=== PATIENT | male | born 1950 | race Caucasian/White ===

== ENCOUNTER 2018-02-06 13:30 | Emergency (ER) | payer MEDICARE, BC, MEDICAID ==
--- NOTE | 2018-02-06 14:04 | ED Physician Chart ---
ED Chief Complaint/HPI - Patient Information Allergies:: Allergies Allergy/AdvReac Type Severity Reaction Status Date / Time divalproex sodium Allergy Verified 02/08/17 19:08 [From Depakote] olanzapine [From Zyprexa] Allergy Verified 02/08/17 19:08 Vitals:: Vital Signs - 8 hr 02/06/18 02/06/18 16:40 19:20 Temp 98.0 F HR 64 61 RR 18 17 BP 100/65 123/75 O2 Sat % 95 98 <Toshia Caballero - Last Filed: 02/06/18 23:04> - Patient Information Date Seen:: 02/06/18 Time Seen:: 14:03 Chief Complaint:: ABDOMINAL PAIN INTERMITTENT X 2 WKS History of Present Illness:: THIS 68-YEAR-OLD MALE RESENTS TO THE EMERGENCY ROOM WITH A TWO-WEEK HISTORY OF PAIN IN THE LOWER ABDOMEN THAT HAS A BAND LIKE DISTRIBUTION RUNNING FROM THE RIGHT LOWER QUADRANT TO THE LEFT.. THE PAIN DOES NOT RADIATE INTO THE BACK OR INTO THE CHEST. HE RATES THE SEVERITY OF THE PAIN A 7/10. HE IS MORE COMFORTABLE IN THE STANDING POSITION BATTLING DOWN.THE PAIN IS NOT ACCOMPANIED BY ANY FEVER, CHILLS OR DIAPHORESIS.YES EXPERIENCE NO NAUSEA, VOMITING OR DIARRHEA.THE PATIENT NOTES THAT HE HAS BEENCONSTIPATED OVERTHE PAST COUPLE OF WEEKS. T Allergies:: Allergies Allergy/AdvReac Type Severity Reaction Status Date / Time divalproex sodium Allergy Verified 02/08/17 19:08 [From Depakote] olanzapine [From Zyprexa] Allergy Verified 02/08/17 19:08 Historian:: Patient <Jordan Norman - Last Filed: 02/08/18 18:24> ED Review of Systems - Review of Systems General/Constitutional: No fever, No chills, No weakness, No diaphoresis, No loss of appetite Skin: No skin lesions, No bruising Head: No headache, No light-headedness Eyes: No loss of vision, No diplopia ENT: No earache, Nasal drainage, No sore throat, No tinnitus Cardio Vascular: No chest pain, No orthopnea, No edema Pulmonary: No SOB, No cough, No sputum, No wheezing GI: No nausea, No vomiting, No diarrhea, Pain, No melena, No hematochezia, Constipation, No hematemesis G/U: No dysuria, No frequency, No hematuria, No nacturia <Jordan Norman - Last Filed: 02/08/18 18:24> ED Past Medical History - Past Medical History Past Medical History: HTN, Dyslipidemia, Thyroid disorder Social History: Non Smoker, No Alcohol, No Drug Use, Surgical History: Cholecystectomy Psychiatricy History: Bipolar, Dementia Other PMH History: BENIGN PROSTHETIC HYPERTROPHY <Jordan Norman - Last Filed: 02/08/18 18:24> Family Medical History - Family Member Mother History Unknown: Yes Ethnicity: Unknown Living Status: Unknown Hx Family Cancer: Yes Hx Family Coronary Artery Disease: (Unknown) Hx Family Congestive Heart Failure: (Unknown) Hx Family Hypertension: Yes Hx Family Stroke: (Unknown) Hx Family Diabetes: Yes Hx Family Seizures: (Unknown) Hx Family Dementia: (Unknown) Hx Family AIDS: (Unknown) Hx Family HIV: No Hx Family COPD: (Unknown) Hx Family Hepatitis: (Unknown) Hx Family Psychiatric Problems: (Unknown) Hx Family Tuberculosis: (Unknown) <Jordan Norman - Last Filed: 02/08/18 18:24> ED Labs/Radiology/EKG Results - Lab Results Results: Laboratory Tests 02/06/18 02/06/18 02/06/18 14:15 14:15 14:15 WBC 8.8 RBC 4.80 Hgb 15.6 Hct 45.0 MCV 93.6 MCH 32.6 H MCHC Differential 34.8 RDW 13.4 Plt Count 162 MPV 7.9 Neutrophils % 60.0 Lymphocytes % 23.9 Monocytes % 9.3 Eosinophils % 6.8 H Basophils % 0.0 Sodium 136 Potassium 4.1 Chloride 106 Carbon Dioxide 24.9 Anion Gap 9.2 BUN 17 Creatinine 0.8 Est GFR ( Amer) > 60.0 Est GFR (Non-Af Amer) > 60.0 BUN/Creatinine Ratio 21.3 Glucose 122 H Calcium 8.6 Total Bilirubin 0.4 AST 19 ALT 16 Alkaline Phosphatase 78 Troponin I < 0.01 L Total Protein 6.2 Albumin 3.7 L Globulin 2.5 Albumin/Globulin Ratio 1.5 Amylase 42 Lipase 37 Urine Source Urine Color Urine Clarity Urine pH Ur Specific [place] Urine Protein Urine Glucose (UA) Urine Ketones Urine Blood Urine Nitrate Urine Bilirubin Urine Urobilinogen Ur Leukocyte Esterase Urine RBC Urine WBC Ur Epithelial Cells Urine Bacteria 02/06/18 14:50 WBC RBC Hgb Hct MCV MCH MCHC Differential RDW Plt Count MPV Neutrophils % Lymphocytes % Monocytes % Eosinophils % Basophils % Sodium Potassium Chloride Carbon Dioxide Anion Gap BUN Creatinine Est GFR ( Amer) Est GFR (Non-Af Amer) BUN/Creatinine Ratio Glucose Calcium Total Bilirubin AST ALT Alkaline Phosphatase Troponin I Total Protein Albumin Globulin Albumin/Globulin Ratio Amylase Lipase Urine Source RANDOM Urine Color YELLOW Urine Clarity CLEAR Urine pH 6.0 Ur Specific [place] 1.015 Urine Protein NEGATIVE Urine Glucose (UA) NEGATIVE Urine Ketones NEGATIVE Urine Blood NEGATIVE Urine Nitrate NEGATIVE Urine Bilirubin NEGATIVE Urine Urobilinogen 0.2 Ur Leukocyte Esterase NEGATIVE Urine RBC NONE SEEN Urine WBC NONE SEEN Ur Epithelial Cells NONE SEEN Urine Bacteria NONE SEEN - Radiology Results Results: ct abd fecal impaction ileus diverticulosis nl appendix s/p layo <Toshia Caballero - Last Filed: 02/06/18 23:04> - Lab Results Results: CBC:THE CBC IS UNREMARKABLE WITH NO ELEVATION IN THE WHITE COUN IS NORMAL HEMOGLOBIN LEVELTHE PATIENT'S ELECTROLYTESWERE ALL WITHIN NORMAL PARAMETERS.HIS URINALYSIS SHOWED NO EVIDENCEOF THE UTI.FRANCIA SUNLIGHT BASE FOR BOTH WITHIN NORMAL PARAMETERS.RENAL FUNCTION IS NORMAL.LIVER FUNCTION TESTS ARE ALL WITHIN NORMAL PARAMETERS. CT SCANOF THE ABDOMEN AND PELVIS:NEVER KNOW WHENNo acuteDisease processes. <Jordan Norman - Last Filed: 02/08/18 18:24> ED Assessment - Assessment General Assessment: I DISCUSS THE CASE WITH DR. GARZA ADMITTING PHYSICIAN [facility] TOLD THEM THAT THE WORKING DIAGNOSIS WAS CONSTIPATIONAND FECAL IMPACTION.HE ADVISED ME TO HAVE NURSINGDO A ENEMA IN THE EMERGENCY DEPARTMENTTHEN HE CAN BE RETURNED TO HIS NURSING FACILITY.I DISCUSS THE PLAN WITH SHE JUST POSITION THE PATIENT. <Jordan Norman - Last Filed: 02/08/18 18:24> ED Septic Shock - . Is Septic Shock (SBP<90, OR Lactate>4 mmol\L) present?: No - <6hrs of presentation: Vital Signs: Vital Signs - 8 hr 02/06/18 02/06/18 16:40 19:20 Temp 98.0 F HR 64 61 RR 18 17 BP 100/65 123/75 O2 Sat % 95 98 <Ammari,Razan - Last Filed: 02/06/18 23:04> - . Is Septic Shock (SBP<90, OR Lactate>4 mmol\L) present?: No <Jordan Norman - Last Filed: 02/08/18 18:24> ED Reassessment (Disposition) - Reassessment Reassessment Condition:: Unchanged, Improved - Diagnosis Diagnosis:: CONSTIPATION WITH FECAL IIMPACGION IN ASLIGHTY DISTENDED RECTUM <Jordan Norman - Last Filed: 02/08/18 18:24> ED Discharge Plan <Toshia Caballero - Last Filed: 02/06/18 23:04> <Jordan Norman - Last Filed: 02/08/18 18:24> - Patient Disposition Admit/Discharge/Transfer: Discharge/Transfered to SNF Condition at Disposition: Improved
[2018-02-06 14:26] LABS: EOSINOPHILE ABSOLUTE 0.6 Th/cmm (0.1-0.4); LYMPHOCYTE ABSOLUTE 2.1 Th/cmm (1.5-3.0); MEAN PLATELET VOLUME 7.9 fl; MONOCYTE ABSOLUTE 0.8 Th/cmm (0.3-1.0)
[2018-02-06 14:30] LABS: % EOSINOPHILS 6.8 % (0.0-5.0); % LYMPHOCYTES 23.9 % (20.0-50.0); % MONOCYTES 9.3 % (2.0-10.0); HEMOGLOBIN 15.6 gm/dL (12-16); MEAN CELL VOLUME 93.6 fl (80-99); MEAN CORPUSCULAR HEMOGLOBIN 32.6 pg (27.0-31.0); MEAN CORPUSCULAR HGB CONC 34.8 pg (28.0-36.0); NEUTROPHILE ABSOLUTE 5.3 Th/cmm (1.8-8.0); PLATELET COUNT 162 Th/cmm (150-400); RED CELL DISTRIBUTION WIDTH 13.4 % (11.5-20.0); WHITE BLOOD COUNT 8.8 Th/cmm (4.8-10.8)
[2018-02-06 15:08] LABS: ALB/GLOB RATIO 1.5 (1.0-1.8); ALBUMIN 3.7 gm/dL (4.2-5.5); ALKALINE PHOSPHATASE 78 U/L (34-104); AMYLASE SERUM 42 U/L (29-103); ANION GAP 9.2 (7.0-16.0); BILIRUBIN,TOTAL 0.4 mg/dL (0.3-1.0); BUN - UREA NITROGEN 17 mg/dL (7-25); CALCIUM SERUM 8.6 mg/dL (8.6-10.3); CARBON DIOXIDE 24.9 mEq/L (21.0-31.0); CHLORIDE 106 mEq/L (98-107); CREATININE - SERUM 0.8 mg/dL (0.7-1.3); GFR AFRICAN-AMERICAN > 60.0 ml/min (>90); GFR NON AFRICAN-AMERICAN > 60.0 ml/min; GLUCOSE 122 mg/dL (70-105); LIPASE 37 U/L (11-82); POTASSIUM SERUM 4.1 mEq/L (3.5-5.1); SGOT 19 U/L (13-39); SGPT/ALT 16 U/L (7-52); SODIUM SERUM 136 mEq/L (136-145); TOTAL PROTEIN,SERUM 6.2 gm/dL (6.0-8.3)
[2018-02-06 15:16] LABS: URINE MICROSCOPIC INDICATED? YES; URINE SOURCE RANDOM
[2018-02-06 15:17] LABS: URINE BILIRUBIN NEGATIVE (NEGATIVE); URINE BLOOD NEGATIVE (NEGATIVE); URINE GLUCOSE (UA) NEGATIVE (NEGATIVE); URINE KETONE NEGATIVE (NEGATIVE); URINE LEUKOCYTE ESTERASE NEGATIVE (NEGATIVE); URINE NITRATE NEGATIVE (NEGATIVE); URINE PROTEIN NEGATIVE (NEGATIVE); URINE UROBILINOGEN 0.2 E.U./dL (0.2 - 1.0)
[2018-02-06 15:34] LABS: URINE CLARITY CLEAR (CLEAR); URINE COLOR YELLOW
[2018-02-06 15:35] LABS: URINE BACTERIA NONE SEEN /hpf (NONE SEEN); URINE EPITHELIAL CELLS NONE SEEN /lpf (FEW); URINE RBC NONE SEEN /hpf (0-5); URINE WBC NONE SEEN /hpf (0-5)
[2018-02-06] MEDS ORDERED: MINERAL OIL ENEMA 135 ML BOTTLE RC ONE (20:26)
[2018-02-07] MEDS ORDERED: Fleet Enema 135 mL RC ONE (00:46)
--- NOTE | 2018-02-07 08:25 | Diagnostic Imaging Report ---
CT scan abdomen and pelvis without intravenous contrast HISTORY: Pain Total DLP equals 580 CTDI equals 7.1 Axial sections were obtained from the xiphoid process down to the pubic symphysis. The liver exhibits a homogeneous parenchyma. No focal lesions. The spleen appears normal. No focal abnormally seen in the pancreas. Surgical clips are noted in the raimundo hepatis region consistent with a prior cholecystectomy. No significant focal renal lesions. No hydronephrosis. There is an approximate 4.0 cm defect noted within the right anterior abdominal wall associated with a fat-containing ventral hernia. The exam of the pelvis demonstrates preservation of normal fat planes. No abnormal soft tissue masses or abnormal fluid collections. There is a mild to moderately distended stool-filled rectum. Small bilateral fat-containing inguinal hernias are seen. No bowel dilatation. Diffuse degenerative changes noted throughout the spine. Colonic diverticula are noted. IMPRESSION: 1. No definite acute abnormalities 2. Fat-containing ventral hernia 3. Status post cholecystectomy 4. Mildly distended stool-filled rectum 5. Diverticulosis.
== END 2018-02-07 00:05 ==
LOC: ER 13:30
DX: K56.41 Fecal impaction (principal); I10 Essential (primary) hypertension; E78.5 Hyperlipidemia, unspecified; E07.9 Disorder of thyroid, unspecified; Z90.49 Acquired absence of other specified parts of digestive tract
CPT/HCPCS: 36415-UA; 80053-TC; 81001-TC; 82150-TC; 83690-TC; 84484-TC; 85025-TC

== ENCOUNTER 2018-08-01 14:28 | Inpatient (IN) | payer MEDICARE, BC, MEDICAID ==
--- NOTE | 2018-08-01 14:48 | ED Physician Chart ---
ED Chief Complaint/HPI - Patient Information Date Seen:: 08/01/18 Time Seen:: 14:30 Chief Complaint:: Agitation History of Present Illness:: onset x 3 days of agitation and aggressive behavior; no report of trauma, H/As, S/T, neck pain, cough, C/P, SOB, Abd. Pain, A/N/V/D/C, fever, chills, SIs, or urinary s/s Allergies:: Allergies Allergy/AdvReac Type Severity Reaction Status Date / Time divalproex sodium Allergy Verified 02/08/17 19:08 [From Depakote] olanzapine [From Zyprexa] Allergy Verified 02/08/17 19:08 Historian:: Patient, EMS Review:: Nurse's Note Reviewed, Old Chart Reviewed, EMS run form Reviewed ED Review of Systems - Review of Systems General/Constitutional: No fever, No chills, No weight loss, No weakness, No diaphoresis, No edema, No loss of appetite Skin: No skin lesions, No rash, No bruising Head: No headache, No light-headedness Eyes: No loss of vision, No pain, No diplopia ENT: No earache, No nasal drainage, No sore throat, No tinnitus Neck: No neck pain, No swelling, No thyromegaly, No stiffness, No mass noted Cardio Vascular: No chest pain, No palpitations, No PND, No orthopnea, No edema Pulmonary: No SOB, No cough, No sputum, No wheezing GI: No nausea, No vomiting, No diarrhea, No pain, No melena, No hematochezia, No constipation, No hematemesis G/U: No dysuria, No frequency, No hematuria, No nacturia Musculoskeletal: No bone or joint pain, No back pain, No muscle pain Endocrine: No polyuria, No polydipsia Psychiatric: Prior psych history, No depression, Anxiety, No suicidal ideation, No homicidal ideation, Auditory hallucination, No visual hallucination Hematopoietic: No bruising, No lymphadenopathy Allergic/Immuno: No urticaria, No angioedema Neurological: No syncope, No focal symptoms, No weakness, No paresthesia, No headache, No seizure, No dizziness, No confusion, No vertigo ED Past Medical History - Past Medical History Obtainable: Yes Past Medical History: HTN, CAD, Dyslipidemia, Thyroid disorder Family History: HTN Social History: Non Smoker, No Alcohol, No Drug Use, Single, Care Facility Surgical History: Cholecystectomy, Pacemaker Psychiatricy History: Schizophrenia Medication: Reviewed Family Medical History - Family Member Mother History Unknown: Yes Ethnicity: Unknown Living Status: Unknown Hx Family Cancer: Yes Hx Family Coronary Artery Disease: (Unknown) Hx Family Congestive Heart Failure: (Unknown) Hx Family Hypertension: Yes Hx Family Stroke: (Unknown) Hx Family Diabetes: Yes Hx Family Seizures: (Unknown) Hx Family Dementia: (Unknown) Hx Family AIDS: (Unknown) Hx Family HIV: No Hx Family COPD: (Unknown) Hx Family Hepatitis: (Unknown) Hx Family Psychiatric Problems: (Unknown) Hx Family Tuberculosis: (Unknown) ED Physical Exam - Physical Examination General/Constitutional: Awake, Well-developed, well-nourished, Alert, No distress, GCS 15, Non-toxic appearing, Ambulatory Head: Atraumatic Eyes: Lids, conjuctiva normal, PERRL, EOMI Skin: Nl inspection, No rash, No skin lesions, No ecchymosis, Well hydrated, No lymphadenopathy ENMT: External ears, nose nl, TM canals nl, Nasal exam nl, Lips, teeth, gums nl , Oropharynx nl, Tonsils nl Neck: Nontender, Full ROM w/o pain, No JVD, No nuchal rigidity, No bruit, No mass, No stridor Respiratory: Nl effort/Exclusion, Clear to Auscultation, No Wheeze/Rhonchi/Rales Cardio Vascular: RRR, No murmur, gallop, rubs, NL S1 S2, Carotid/Femoral/Distal pulses equal bilaterally GI: No tenderness/rebounding/guarding, No organomegaly, No hernia, Normal BS's, Nondistended, No mass/bruits, No McBurney tenderness : No CVA tenderness Extremities: No tenderness or effusion, Full ROM, normal strength in all extremities, No edema, Normal digits & nails Neuro/Psych: Alert/oriented, DTR's symmetric, Normal sensory exam, Normal motor strength, Judgement/insight normal, Mood normal, Normal gait, No focal deficits Other Neuro/Psych comments:: + Psychomotor Agitation; no SIs; Mood/Affect: Labile Misc: Normal back, No paraspinal tenderness ED Labs/Radiology/EKG Results - Lab Results Comments:: Reviewed - EKG Interpretations EKG Time:: 15:00 Rate & Rhythm: 66; Atrial Paced Rhythm Comments:: non-specific st-t changes ED Septic Shock - . Is Septic Shock (SBP<90, OR Lactate>4 mmol\L) present?: No ED Reassessment (Disposition) - Reassessment Reassessment Condition:: Improved - Diagnosis Diagnosis:: Agitation; Medical Clearance; Psychosis; Bipolar Disorder - Aftercare/Follow up Instructions Aftercare/Follow-Up Instructions:: Counseled pt regarding lab results/diagnosis & need follow up, Counseled pt & family regarding lab results/diagnosis & need follow up - Patient Disposition Discharge/Transfer:: Acute Care w/in this hosp Admitted to:: [facility] Condition at Disposition:: Stable, Improved
[2018-08-01 15:04] LABS: % BASOPHILS 0.3 % (0.0-2.0); % EOSINOPHILS 5.1 % (0.0-5.0); % LYMPHOCYTES 19.7 % (20.0-50.0); % MONOCYTES 11.7 % (2.0-10.0); % NEUTROPHILS 63.2 % (40.0-80.0); EOSINOPHILE ABSOLUTE 0.4 Th/cmm (0.1-0.4); HEMATOCRIT 49.3 % (41.0-60); HEMOGLOBIN 16.3 gm/dL (12-16); LYMPHOCYTE ABSOLUTE 1.5 Th/cmm (1.5-3.0); MEAN CELL VOLUME 94.5 fl (80-99); MEAN CORPUSCULAR HEMOGLOBIN 31.2 pg (27.0-31.0); MEAN PLATELET VOLUME 7.7 fl; MONOCYTE ABSOLUTE 0.9 Th/cmm (0.3-1.0); NEUTROPHILE ABSOLUTE 4.9 Th/cmm (1.8-8.0); PLATELET COUNT 203 Th/cmm (150-400); RED BLOOD COUNT 5.22 Mil/cmm (3.80-5.80); RED CELL DISTRIBUTION WIDTH 12.9 % (11.5-20.0); WHITE BLOOD COUNT 7.7 Th/cmm (4.8-10.8)
[2018-08-01 15:25] LABS: ACETAMINOPHEN < 10.0 ug/mL (10.0-30.0); ALB/GLOB RATIO 1.5 (1.0-1.8); ALBUMIN 3.9 gm/dL (4.2-5.5); ALKALINE PHOSPHATASE 77 U/L (34-104); ANION GAP 10.7 (7.0-16.0); BILIRUBIN,TOTAL 0.3 mg/dL (0.3-1.0); BUN - UREA NITROGEN 18 mg/dL (7-25); CALCIUM SERUM 9.4 mg/dL (8.6-10.3); CARBON DIOXIDE 29.4 mEq/L (21.0-31.0); CHLORIDE 104 mEq/L (98-107); CHOLESTEROL 92 mg/dL (<200); CREATININE - SERUM 1.1 mg/dL (0.7-1.3); GFR AFRICAN-AMERICAN > 60.0 ml/min (>90); GFR NON AFRICAN-AMERICAN > 60.0 ml/min; GLUCOSE 93 mg/dL (70-105); HDL -HIGH DENSITY LIPOPROTEIN 32 mg/dL (23-92); POTASSIUM SERUM 4.1 mEq/L (3.5-5.1); SALICYLATES (ASPIRIN) < 25.0 mg/L (30.0-100.0); SGOT 16 U/L (13-39); SGPT/ALT 12 U/L (7-52); SODIUM SERUM 140 mEq/L (136-145); TOTAL PROTEIN,SERUM 6.5 gm/dL (6.0-8.3); TRIGLYCERIDES 220 mg/dL (<150)
[2018-08-01 15:39] LABS: URINE SOURCE CLEAN C
[2018-08-01 15:43] LABS: URINE BILIRUBIN NEGATIVE (NEGATIVE); URINE BLOOD NEGATIVE (NEGATIVE); URINE CLARITY CLEAR (CLEAR); URINE COLOR YELLOW; URINE GLUCOSE (UA) NEGATIVE (NEGATIVE); URINE KETONE NEGATIVE (NEGATIVE); URINE LEUKOCYTE ESTERASE NEGATIVE (NEGATIVE); URINE MICROSCOPIC INDICATED? YES; URINE NITRATE NEGATIVE (NEGATIVE); URINE PROTEIN NEGATIVE (NEGATIVE); URINE UROBILINOGEN 0.2 E.U./dL (0.2 - 1.0)
[2018-08-01 15:46] LABS: URINE BACTERIA FEW /hpf (NONE SEEN); URINE RBC 0-2 /hpf (0-5)
[2018-08-01 15:47] LABS: URINE EPITHELIAL CELLS FEW /lpf (FEW)
[2018-08-01 15:51] LABS: AMPHETAMINE URINE NEGATIVE (NEGATIVE); BARBITURATES URINE NEGATIVE (NEGATIVE); BENZODIAZEPINES QUAL URINE NEGATIVE (NEGATIVE); CANNABINOID THC NEGATIVE (NEGATIVE); COCAINE METABOLITE QUAL URINE NEGATIVE (NEGATIVE); METHADONE URINE NEGATIVE (NEGATIVE); METHAMPHETAMINES QUAL URINE NEGATIVE (NEGATIVE); OPIATES (MORPHINE) QUAL. URINE NEGATIVE (NEGATIVE); PHENCYCLIDINE (PCP) URINE NEGATIVE (NEGATIVE); TRICYCLICS (TCA) QUAL. URINE POSITIVE (NEGATIVE)
[2018-08-01 19:43] VITALS: BP 103/62
[2018-08-01] MEDS ORDERED: Magnesium Hydroxide (MOM) 30 mL UDC PO PRN (19:43)
[2018-08-01] MEDS ORDERED: Maalox 30 mL Cup PO PRN (19:43)
[2018-08-01 20:31] LABS: CHOLESTEROL 94 mg/dL (<200); HDL -HIGH DENSITY LIPOPROTEIN 32 mg/dL (23-92); TRIGLYCERIDES 221 mg/dL (<150)
[2018-08-01] MEDS: Atorvastatin Calcium 10 MG TAB PO SCH (21:16)
[2018-08-02] MEDS: Levothyroxine 0.1 Mg Tab PO SCH (06:38)
[2018-08-02] MEDS: Multivitamin w/ Minerals Tab PO SCH (09:23)
[2018-08-02] MEDS: Atorvastatin Calcium 10 MG TAB PO SCH (20:42)
--- NOTE | 2018-08-03 00:04 | Psychiatric Evaluation ---
DATE OF SERVICE: PSYCHIATRIC INITIAL EVALUATION AND MENTAL STATUS EXAM PATIENT'S AGE: 68-year-old. SEX: Male. PHYSICIAN: Dr. Nelson. CHIEF COMPLAINT: Agitation and aggressive behavior. HISTORY OF PRESENT ILLNESS: The patient was transferred from [facility] because of increased agitation and aggressive behavior. The patient was not able to follow any of instructions of the staff and also he has bad memory and the bad interaction with others. The patient has been agitated on the unit and he is thinking that he is a 55-year-old and he has been confused. Also, he is agitated. The patient also is suspicious and paranoid and has difficulty following any of staff directions. PAST PSYCHIATRIC HISTORY: The patient has history of what seems to be psychosis and dementia in [facility] where he lives. PAST MEDICAL HISTORY: The patient was admitted with urinary tract infection, otherwise no other major medical problems. SOCIAL HISTORY: The patient lives in [facility]. No known alcohol or drug use. ALLERGIES: No known allergies. MENTAL STATUS EXAMINATION: The patient appears his stated age. Cooperative. Anxious. Mood not depressed nor elated. Easily agitated and gets aggressive. Thought processes are circumstantial, but no flight of ideas. The patient is alert and oriented to time, place, person and situation. Impaired immediate and recent memory, but intact remote memory. Poor insight. Poor judgment. Seems to be of average intelligence based on his verbal ability. ASSESSMENT: PRIMARY DIAGNOSIS: Colonic paranoid schizophrenia with acute exacerbation. Rule out schizoaffective disorder. SECONDARY DIAGNOSIS: Dementia, mild to moderate. TREATMENT PLAN: We will continue monitoring his behavior and condition closely. We will adjust psychotropic medications and work on behavioral modification. ESTIMATED LENGTH OF STAY: 5-7 days. THE PATIENT'S STRENGTHS AND WEAKNESSES: The patient has supportive staff in [place]. Weaknesses: Poor impulse control. AFTER DISCHARGE PLAN: Outpatient treatment and followup. Also the patient will return to [place]. [facility]# [id number]
[2018-08-03] MEDS: Levothyroxine 0.1 Mg Tab PO SCH (06:43)
--- NOTE | 2018-08-03 08:06 | Diagnostic Imaging Report ---
KUB abdominal film HISTORY: Pain There is evidence of a mildly distended stool-filled ascending colon. Bowel gas pattern otherwise nonspecific. No free intraperitoneal air. Surgical clip seen within the right upper quadrant consistent with prior cholecystectomy. Surgical spinal changes noted. IMPRESSION: 1. Mild to moderate distended stool-filled ascending colon with an otherwise nonspecific bowel gas pattern. 2. Surgical changes
[2018-08-03] MEDS: Multivitamin w/ Minerals Tab PO SCH (09:21)
[2018-08-03] MEDS: Atorvastatin Calcium 10 MG TAB PO SCH (21:02)
--- NOTE | 2018-08-04 06:06 | Progress Notes ---
DATE: 08/03/2018 SUBJECTIVE: Chart reviewed and the patient interviewed. Also discussed the patient's condition with the staff and reviewed records and labs. The patient is still in irritable and angry mood. He also is still suspicious and paranoid and also has mood swings. The patient was complaining of abdominal pain today and will have an x-ray. He also had episodes of anger and irritability, especially during the day. Otherwise, the patient is compliant with taking his medications with no side effects of medications. ASSESSMENT: The patient is still psychotic. TREATMENT PLAN: Continue to monitor his behavior and his condition closely. Also, we will increase Seroquel to 25 mg in the morning and 200 mg at bedtime and we will continue to work on behavioral modification and adjusting psychotropic medications. [facility]# [id number]
[2018-08-04] MEDS: Levothyroxine 0.1 Mg Tab PO SCH (06:34)
[2018-08-04] MEDS: Multivitamin w/ Minerals Tab PO SCH (09:28)
[2018-08-04] MEDS ORDERED: Lactulose 10 Gm/15 mL 30mL UDC PO PRN (17:45)
[2018-08-04] MEDS: Atorvastatin Calcium 10 MG TAB PO SCH (20:24)
--- NOTE | 2018-08-04 23:13 | History & Physical ---
ADMIT DATE: 08/04/2018 REASON FOR ADMISSION: Psychiatric disorder. HISTORY OF PRESENT ILLNESS: This 68-year-old male with underlying history of hypertriglyceridemia, hypothyroidism, hypertension, BPH, pacemaker in place, admitted to Geropsych Unit for underlying psychiatric illness by Dr. Nelson. Dr. Nelson requested medical H and P on this patient. The patient is complaining of lower abdominal pain. He has been having some constipation issues. No nausea, no vomiting. No fever, no chills, or any bloody stool reported. PAST MEDICAL HISTORY: As per HPI. PAST SURGICAL HISTORY: Pacemaker placement. FAMILY HISTORY: Noncontributory. SOCIAL HISTORY: alf resident . MEDICATIONS: Per medication reconciliation reviewed. ALLERGIES: No known drug allergies. REVIEW OF SYSTEMS: As per HPI. Twelve-point system review is negative. PHYSICAL EXAMINATION: VITAL SIGNS: Temperature 98.0, pulse 73, respirations 20, blood pressure 137/60, oxygen saturation 93% on room air. HEENT: Unremarkable. HEART: Sounds normal. ABDOMEN: Soft, nontender. NEUROLOGIC: Awake, alert, follows command, moves all extremities. No focal deficits. EXTREMITIES: No edema. AVAILABLE LABORATORY DATA: Has been reviewed. ASSESSMENT: 1. Abdominal pain most likely due to constipation. 2. Hypothyroidism. 3. Hypertension. 4. Hyperlipidemia. 5. Benign prostatic hypertrophy. 6. Pacemaker. 7. Psych disorder. PLAN: The patient was on lactulose as needed for constipation. X-ray KUB has confirmed the constipation. Other chronic meds has been reviewed and continue that. Psych management per psychiatrist. The patient is medically stable to participate in activities Geropsych unit. Plan of care discussed with nursing staff. JOB# [id number]
[2018-08-05] MEDS: Levothyroxine 0.1 Mg Tab PO SCH (06:43)
[2018-08-05] MEDS: Multivitamin w/ Minerals Tab PO SCH (08:23)
[2018-08-05] MEDS: Atorvastatin Calcium 10 MG TAB PO SCH (20:28)
--- NOTE | 2018-08-05 23:51 | Progress Notes ---
DATE: 08/05/2018 SUBJECTIVE: The patient was seen, chart reviewed, and discussed with staff. The patient continues to be irritable, labile and verbally aggressive, still displaying paranoia suspicion. He is generally redirectable, has not required any p.r.n. medications, has been compliant with medications. Appetite and sleep have been within normal range. PLAN: The patient continues to be very unpredictable and actively psychotic and paranoid, so that he will require inpatient care center treatment. We will monitor patient on a daily basis for response to medication and titrate medications as needed. JOB# [id number]
[2018-08-06] MEDS: Levothyroxine 0.1 Mg Tab PO SCH (06:43)
[2018-08-06] MEDS: Multivitamin w/ Minerals Tab PO SCH (09:34)
--- NOTE | 2018-08-06 15:53 | Progress Notes ---
DATE: 08/04/2018 SUBJECTIVE: Chart reviewed and the patient interviewed. Also, discussed the patient's condition with the staff and reviewed records and labs. The patient seems to be slightly calmer and decreased behavioral problems. The patient also seems to be less agitated during the day since Seroquel was increased to 25 mg in the morning and 200 mg at bedtime. He is here to follow directions. The patient also is compliant with taking medications with no side effects of medications. During interview, the patient is still responding to stimuli. ASSESSMENT: The patient is still psychotic and also still needs close monitoring. TREATMENT PLAN: Continue to monitor behavior and condition closely and continue adjusting psychotropic medications. [facility]# [id number]
--- NOTE | 2018-08-06 16:03 | Progress Notes ---
DATE: 08/06/2018 SUBJECTIVE: The patient is seen, chart reviewed, discussed with staff. The patient continues to be very labile, irritable and often posturing aggressively towards staff. Continues to be quite paranoid and psychotic. He has, however, been redirectable, not requiring any p.r.n. medications. He has been compliant with medications, denying any undue side effects. PLAN: The patient continues to be unpredictable and psychotic, so that he will require continued inpatient care facility stabilization and treatment. We will monitor the patient on a daily basis for response to medications and titrate medication as needed. JOB# [id number]
[2018-08-06] MEDS: Atorvastatin Calcium 10 MG TAB PO SCH (21:35)
[2018-08-07] MEDS: Levothyroxine 0.1 Mg Tab PO SCH (06:57)
[2018-08-07] MEDS: Multivitamin w/ Minerals Tab PO SCH (08:25)
[2018-08-07] MEDS: Atorvastatin Calcium 10 MG TAB PO SCH (21:35)
--- NOTE | 2018-08-08 04:52 | Progress Notes ---
DATE: 08/07/2018 SUBJECTIVE: Chart reviewed and the patient interviewed. Also discussed the patient's condition with the staff and reviewed records and labs. The patient is still forgetful and withdrawn. He also is still suspicious and paranoid and guarded. The patient also is selectively mute. He also is still easily agitated at times and wants to be left alone. Otherwise, the patient is compliant with taking his medications with no side effects of medications. ASSESSMENT: The patient is still psychotic and withdrawn and need close monitoring. TREATMENT PLAN: Continue to monitor behavior and condition closely. Also, we will continue to work on his agitation and irritability and we will continue to follow up. JOB# [id number]
[2018-08-08] MEDS: Levothyroxine 0.1 Mg Tab PO SCH (06:55)
[2018-08-08] MEDS: Multivitamin w/ Minerals Tab PO SCH (08:42)
[2018-08-08] MEDS: Atorvastatin Calcium 10 MG TAB PO SCH (21:16)
[2018-08-09] MEDS: Levothyroxine 0.1 Mg Tab PO SCH (06:42)
[2018-08-09] MEDS: Multivitamin w/ Minerals Tab PO SCH (08:51)
--- NOTE | 2018-08-10 10:43 | Discharge Summary ---
DATE OF DISCHARGE: 08/09/2018 FINAL DIAGNOSIS/PRIMARY DIAGNOSIS: Chronic paranoid schizophrenia with acute exacerbation. SECONDARY DIAGNOSIS: Dementia, [id number], with behavior disturbances. REASON FOR HOSPITALIZATION: The patient was admitted to the hospital from [facility] because of increased agitation and aggressive behavior. The patient also was not able to follow any directions. Also was suspicious and was paranoid. HOSPITAL COURSE: The patient continued to be suspicious and paranoid. He also was, in the beginning of hospitalization, easily agitated. The patient was given Neurontin and the dose was given at 400 mg 3 times a day. He was started on Seroquel and the dose adjusted to 25 mg in the morning and 200 mg at bedtime that helps the patient's agitation and irritability and the patient was calmer and less agitated and was easier to redirect him. The patient was discharged back to [facility] when he was calm. Physical examination of the patient showed no major medical problems while in the hospital. AFTER DISCHARGE PLANS: The patient was discharged from the hospital with plan to continue the treatment as an outpatient. EXPECTED OUTCOME AFTER DISCHARGE: Fair if the patient continue to comply with psychotropic medications and follow up with discharge plans. [facility]# [id number]
--- NOTE | 2018-08-10 14:16 | Progress Notes ---
DATE: 08/08/2018 SUBJECTIVE: Chart reviewed and the patient interviewed. Also discussed the patient's condition with the staff and reviewed records and labs. The patient seems to be slightly calmer, but still needs lots of redirections. He also still has episodes of agitation, but seems to be less than before. The patient is also easier to redirect him. He still has episodes of anger. Also compliant with taking his medications with no side effects of medications. ASSESSMENT: The patient still has episodes of agitation. PLAN: We will continue to monitor his behavior and his condition closely. Also, continue adjusting psychotropic medications and follow up with discharge plans. JOB# [id number]
== END 2018-08-09 18:15 | DRG 885 ==
LOC: ER 14:28 → GERO 17:08
PROVIDERS: ADMIT Psychiatry & Neurology Psychiatry; ATTEND Psychiatry & Neurology Psychiatry
DX: F20.0 Paranoid schizophrenia (principal); F03.91 Unspecified dementia, unspecified severity, with behavioral disturbance; R10.9 Unspecified abdominal pain; E03.9 Hypothyroidism, unspecified; I10 Essential (primary) hypertension; E78.5 Hyperlipidemia, unspecified; F29 Unspecified psychosis not due to a substance or known physiological condition; I25.10 Atherosclerotic heart disease of native coronary artery without angina pectoris; N40.0 Benign prostatic hyperplasia without lower urinary tract symptoms; Z95.0 Presence of cardiac pacemaker; Z88.8 Allergy status to other drugs, medicaments and biological substances; Z82.49 Family history of ischemic heart disease and other diseases of the circulatory system; Z90.49 Acquired absence of other specified parts of digestive tract
CPT/HCPCS: 36415-UA; 74000-TC; 80053-TC; 80061-TC; 80307; 80320-TC; 80329-TC; 81001-TC; 83036-90; 84443-TC; 84484-TC; 85025-TC; 86592-TC; 93005; Z7610

== ENCOUNTER 2019-09-21 17:14 | Inpatient (IN) | payer MEDICARE, BC, MEDICAID ==
[2019-09-21] MEDS ORDERED: Magnesium Hydroxide (MOM) 30 mL UDC PO PRN (20:02)
[2019-09-21] MEDS ORDERED: Maalox 30 mL Cup PO PRN (20:02)
[2019-09-22] MEDS: Levothyroxine 0.1 Mg Tab PO SCH (06:36)
[2019-09-22] MEDS: Atorvastatin Calcium 10 MG TAB PO SCH ×2 (07:07→20:31)
[2019-09-22] MEDS ORDERED: Multivitamin Tab PO SCH (09:00)
[2019-09-22] MEDS: Apixaban 5 MG TABLET PO SCH ×2 (09:14→16:33)
[2019-09-22] MEDS: Multivitamin w/ Minerals Tab PO SCH (09:14)
--- NOTE | 2019-09-22 12:39 | History & Physical ---
ADMIT DATE: 09/21/2019 IDENTIFYING INFORMATION: The patient is a 69-year-old male. CHIEF COMPLAINT: The patient has no idea. HISTORY OF PRESENT ILLNESS: Transferred from the [facility] via gurney, accompanied by two ambulance transport team personnel. The patient came from [facility] under Dr. Nelson and Dr. Pitts. Diagnoses psychosis, schizophrenia, anxiety, history of encephalopathy, hypertension, heart disease, hyperlipidemia, and hypothyroidism. The patient was a poor historian, believes he is 54. He was not sure where he was. He believes he is here because of back pain. He knew he was in [place]. He was a poor historian. He has a history of prior depression, he reports. He reports that he never tried to harm himself. He denies any current auditory or visual hallucination or paranoia. The patient when I talked to him, he believed that this is 06/2012 and he was not sure that he was in the hospital. He reports he sleeps well, he eats well. PAST PSYCHIATRIC HISTORY: The patient according to records has a history of chronic schizophrenia. The patient is unable to give me much more information and admits to have history of depression in the past, because of that he was unable to give me more details. He denies prior suicide attempt or any auditory or visual hallucinations. MEDICAL HISTORY: The patient otherwise has a history of hyperlipidemia, hypothyroidism, neuropathy, polyneuropathy, atrial fibrillation, sick sinus syndrome, benign prostatic hypertrophy, calculus or gallbladder, cholecystitis without obstruction. He came voluntarily. ALLERGIES: HE IS ALLERGIC TO DEPAKOTE AND OLANZAPINE. SOCIAL HISTORY: The patient reports he has been . He said this 18 years, he has 1 son that was born in 1978. The patient reports he has worked for [employer]. He graduated [employer]. 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 I am not sure if it is appropriate or correct information. He is a poor historian. He denies any substance abuse. He reported never had substance abuse problem. Denies family psychotic disorder. MENTAL STATUS EXAMINATION: The patient is appropriately dressed, not very well groomed. He was confused. He believes he is 54 ____ he is 69. He believes this is 06/2012. Unable to tell me why he is or the reason for him being here. He has been confused, depressed. He sleeps and eats well. He reports that he is a poor historian. He seems to have average intelligence. 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 He can remember his birthday, but he believes this is 2012, does not sure of the date. He knew he was in [place], but he is not sure exactly that he was in the hospital. He believes he is here for back pain. He is sleeping well. He reports appetite is okay. He denies any visual hallucination or paranoia and denies any intent to harm anyone. His insight about his short term is poor. He cannot remember events at the time of coming here. Insight about his illness is poor, does not realize his problems. Judgment is poor because of his dementia. IMPRESSION: Dementia with behavior disturbances and history of schizophrenia. MEDICAL DIAGNOSES: Deferred to the medical doctor. His asset is accepting treatment. Negative poor coping skills. INITIAL TREATMENT PLAN: The patient will be continued with medication, which is Seroquel and gabapentin. We will do group therapy, milieu therapy. ESTIMATED LENGTH OF STAY: 3-7 days. DISCHARGE CRITERIA: Feeling better, less depressed. After discharge, outpatient treatment. [facility]# [id number]
[2019-09-23] MEDS: Levothyroxine 0.1 Mg Tab PO SCH (06:54)
[2019-09-23] MEDS: Multivitamin w/ Minerals Tab PO SCH (08:26)
[2019-09-23] MEDS: Apixaban 5 MG TABLET PO SCH ×2 (08:27→16:22)
--- NOTE | 2019-09-23 15:26 | Progress Notes ---
DATE: 09/23/2019 Case was discussed with staff of the patient, reviewed records. The patient continues to be confused, unable to remember his age. He is not sure why he is here. Continues to have poor insight, unable to make safe plan for self-care with a history of schizophrenia, psychosis, and encephalopathy. The patient continues to be a poor historian. Continues to be unable to make safe plan for self-care. Continues to be unpredictable, impulsive, needing redirection, unable to tell the date, where he is, why he is here. He is compliant with the medication with no side effects, no sedation, no nausea, no extrapyramidal symptoms. We will continue to work with the patient in group therapy, milieu therapy, and adjust the medication as needed. JOB# [id number]
[2019-09-23] MEDS: Atorvastatin Calcium 10 MG TAB PO SCH (21:16)
[2019-09-24] MEDS: Levothyroxine 0.1 Mg Tab PO SCH (06:42)
[2019-09-24] MEDS: Apixaban 5 MG TABLET PO SCH ×2 (08:36→16:54)
[2019-09-24] MEDS: Multivitamin w/ Minerals Tab PO SCH (08:37)
--- NOTE | 2019-09-24 09:47 | Progress Notes ---
DATE: SUBJECTIVE: Chart reviewed and the patient interviewed. Also discussed the patient's condition with the staff and reviewed records and labs. The patient is still suspicious and paranoid. The patient also is still easily irritable and easily agitated. He also is still argumentative. On the other hand, the patient is compliant with taking his medications with no side effects of medications. Also, during interview, the patient is unkempt and seems preoccupied and responding. ASSESSMENT: The patient is still agitated and psychotic. TREATMENT PLAN: Continue to monitor behavior and condition closely. Also, continue to work on his poor impulse control and continue to follow up. JOB# [id number]
[2019-09-24] MEDS: Atorvastatin Calcium 10 MG TAB PO SCH (20:40)
[2019-09-25] MEDS: Levothyroxine 0.1 Mg Tab PO SCH (06:32)
--- NOTE | 2019-09-25 07:21 | Progress Notes ---
DATE: 09/25/2019 PSYCHIATRIC PROGRESS NOTE SUBJECTIVE: Chart was reviewed and the patient interviewed. Also discussed the patient's condition with the staff and reviewed records and labs. The patient is still confused and guarded. The patient also is still suspicious and is still paranoid. Also, he is withdrawn and guarded and wants to stay by himself most of the time. Otherwise, the patient is compliant with taking his medications with no side effects of medications. ASSESSMENT: The patient is still agitated and confused. TREATMENT PLAN: Continue Seroquel 25 mg in the morning and 200 mg at bedtime. Also, continue to work on his poor impulse control and his agitation and continue to follow up closely. JOB# [id number]
[2019-09-25] MEDS: Apixaban 5 MG TABLET PO SCH ×2 (08:24→16:28)
[2019-09-25] MEDS: Multivitamin w/ Minerals Tab PO SCH (08:24)
[2019-09-25] MEDS: Atorvastatin Calcium 10 MG TAB PO SCH (20:15)
--- NOTE | 2019-09-26 02:20 | History & Physical ---
ADMIT DATE: 09/21/2019 REASON FOR ADMISSION: Psychiatric disorders. HISTORY OF PRESENT ILLNESS: A 69-year-old male with underlying history of hypothyroidism, hyperlipidemia, nicotine dependency, pacemaker in place who lives in a nursing facility, was admitted for evaluation of the psychiatric disorders by Dr. Nelson. Dr. Nelson requested medical H and P on this patient. The patient denies any chest pain, pressure, dizziness, or palpitation complaints. PAST MEDICAL HISTORY: As above. PAST SURGICAL HISTORY: Pacemaker. FAMILY HISTORY: Noncontributory. SOCIAL HISTORY: Lives at home. Positive for daily cigarette smoking. Denies any alcohol or drug use. CURRENT MEDICATIONS: Per medication reconciliation. ALLERGIES: ALLERGIC TO DEPAKOTE AND OLANZAPINE. REVIEW OF SYSTEMS: Denies any fever, no chills, no cough, no congestion, no chest pain or trouble breathing. No nausea, vomiting, hematemesis or melena. No fever, chills, diarrhea, abdominal pain. PHYSICAL EXAMINATION: VITAL SIGNS: Temperature 98.3, pulse 81, respirations 19, blood pressure 130/70, oxygen 98% on room air. Pain 0/10. HEENT: Unremarkable. HEART: S1, S2 normal. LUNGS: Clear to auscultation. ABDOMEN: Soft, nontender. No guarding. NEUROLOGIC: Awake. Follows commands. No focal deficits. ASSESSMENT: 1. Hypothyroidism. 2. Hyperlipidemia. 3. Benign prostatic hypertrophy. 4. Nicotine abuse. 5. Dementia. 6. ____. 7. Pacemaker in place. PLAN: The patient will continue chronic medications. Monitor vital signs. Smoking cessation discussed. Psych management per psychiatrist. The patient is medically stable to participate in activities of Geropsych Unit. Thank you Dr. Nelson. JOB# [id number]
[2019-09-26] MEDS: Levothyroxine 0.1 Mg Tab PO SCH (06:29)
--- NOTE | 2019-09-26 07:43 | Progress Notes ---
DATE: PSYCHIATRIC PROGRESS NOTE SUBJECTIVE: Chart was reviewed and the patient interviewed. Also discussed the patient's condition with the staff and reviewed records and labs. The patient continued to be confused and is still suspicious and paranoid. The patient also is isolative and stays in his bed most of the time and refused to leave the room. The patient also is still suspicious and he also still has episodes of agitation. Otherwise, the patient continued to comply with taking his medications with no side effects of medications. ASSESSMENT: The patient is still agitated and is still psychotic. TREATMENT PLAN: Continue monitoring his behavior closely. Also, continue Seroquel in a dose of 25 mg in the morning and 200 mg at bedtime as well as Neurontin 400 mg 3 times a day and continue to work on behavioral modification. JOB# [id number]
[2019-09-26] MEDS: Multivitamin w/ Minerals Tab PO SCH (08:29)
[2019-09-26] MEDS: Apixaban 5 MG TABLET PO SCH ×2 (08:30→16:14)
[2019-09-26] MEDS: Atorvastatin Calcium 10 MG TAB PO SCH (20:21)
[2019-09-27] MEDS: Levothyroxine 0.1 Mg Tab PO SCH (06:48)
[2019-09-27] MEDS: Multivitamin w/ Minerals Tab PO SCH (09:07)
[2019-09-27] MEDS: Apixaban 5 MG TABLET PO SCH ×2 (09:08→17:49)
[2019-09-27] MEDS: Atorvastatin Calcium 10 MG TAB PO SCH (20:30)
--- NOTE | 2019-09-27 22:49 | Progress Notes ---
DATE: 09/27/2019 SUBJECTIVE: Chart was reviewed and the patient interviewed. Also discussed the patient's condition with the staff and reviewed records and labs. The patient is still isolating himself and staying in his room most of the time. The patient also still seems to be responding to stimuli with bland affect. He also still has episodes of irritability. Otherwise, the patient is compliant with taking his medications with no side effects of medications. ASSESSMENT: The patient is still agitated and psychotic. TREATMENT PLAN: Continue to monitor behavior and condition closely. Also, increase Seroquel to 37.5 mg in the morning and 200 mg at bedtime and we will continue to follow up. JOB# [id number]
[2019-09-28] MEDS: Levothyroxine 0.1 Mg Tab PO SCH (06:37)
--- NOTE | 2019-09-28 08:11 | Progress Notes ---
DATE: 09/28/2019 SUBJECTIVE: Chart reviewed and the patient interviewed. Also discussed the patient's condition with the staff and reviewed records and labs. The patient is still guarded and is still isolative and withdrawn. The patient is interacting minimally with peers and with others. He also is still suspicious and is still paranoid with flat affect and depressed mood. Otherwise, decreased agitation and behavioral issues. ASSESSMENT: The patient is still psychotic, but less agitated. TREATMENT PLAN: Continue Seroquel in a dose of 37.5 mg in the morning and 200 mg at bedtime. Also, encouraged the patient to get out of his isolation and to socialize more. Also, continue to work on his ineffective coping and continue to monitor medications. [facility]# [id number]
[2019-09-28] MEDS: Apixaban 5 MG TABLET PO SCH ×2 (09:06→17:47)
[2019-09-28] MEDS: Multivitamin w/ Minerals Tab PO SCH (09:07)
[2019-09-28] MEDS: Atorvastatin Calcium 10 MG TAB PO SCH (20:12)
[2019-09-29] MEDS: Levothyroxine 0.1 Mg Tab PO SCH (06:43)
[2019-09-29] MEDS: Apixaban 5 MG TABLET PO SCH ×2 (09:14→16:18)
[2019-09-29] MEDS: Multivitamin w/ Minerals Tab PO SCH (09:14)
--- NOTE | 2019-09-29 16:50 | Progress Notes ---
DATE: 09/29/2019 PSYCHIATRIC PROGRESS NOTE SUBJECTIVE: Chart was reviewed and the patient interviewed. Also discussed the patient's condition with the staff and reviewed records and labs. The patient is still confused and is still agitated, but he is more visible and getting out of his room more. The patient also is trying to interact more. He still has disorganized thoughts and unable to carry on coherent conversation. On the other hand, the patient seems to be slightly calmer and more cooperative with his treatment. ASSESSMENT: The patient is still psychotic and need close monitoring. TREATMENT PLAN: Seroquel was increased to 37.5 mg in the morning and 200 mg at bedtime. We will continue same dose and continue to monitor his behavior and condition closely. [facility]# [id number]
[2019-09-29] MEDS: Atorvastatin Calcium 10 MG TAB PO SCH (21:47)
[2019-09-30] MEDS: Levothyroxine 0.1 Mg Tab PO SCH (06:49)
[2019-09-30] MEDS: Apixaban 5 MG TABLET PO SCH ×2 (08:57→16:24)
[2019-09-30] MEDS: Multivitamin w/ Minerals Tab PO SCH (08:57)
--- NOTE | 2019-09-30 17:36 | Progress Notes ---
DATE: SUBJECTIVE: Chart was reviewed and the patient interviewed. Also discussed the patient's condition with the staff and reviewed records and labs. The patient continued to be confused and anxious, but seems to be less agitated and less irritable. The patient is guarded. The patient also has been compliant with taking his medications and has been cooperative with his treatment. Otherwise, the patient is still confused and still needs redirections. ASSESSMENT: The patient is still psychotic and needs redirections. TREATMENT PLAN: Continue to monitor behavior and condition closely. Also, continue adjusting psychotropic medications and work on behavioral modification. JOB# [id number]
[2019-09-30] MEDS: Atorvastatin Calcium 10 MG TAB PO SCH (21:18)
[2019-10-01] MEDS: Levothyroxine 0.1 Mg Tab PO SCH (06:50)
[2019-10-01] MEDS: Apixaban 5 MG TABLET PO SCH ×2 (09:38→17:05)
[2019-10-01] MEDS: Multivitamin w/ Minerals Tab PO SCH (09:39)
[2019-10-01] MEDS: Atorvastatin Calcium 10 MG TAB PO SCH (21:27)
--- NOTE | 2019-10-02 01:37 | Progress Notes ---
DATE: 10/01/2019 PSYCHIATRIC PROGRESS NOTE SUBJECTIVE: Chart reviewed and the patient interviewed. Also, discussed the patient's condition with the staff and reviewed records and labs. The patient still has episodes of shouting, but less than before. The patient also is still depressed and resisting care. "They will pull my teeth." The patient said that they pulled his lower teeth and his upper teeth will be pulled and he feels depressed about that. The patient also still has episodes of agitation and irritability. Also, has not been very cooperative at times with the staff. ASSESSMENT: The patient is still depressed and agitated. TREATMENT PLAN: We will increase Seroquel to 50 mg in the morning and 200 mg at bedtime and continue to work on behavior modification and his irritability. JOB# [id number]
[2019-10-02] MEDS: Levothyroxine 0.1 Mg Tab PO SCH (06:54)
[2019-10-02] MEDS: Multivitamin w/ Minerals Tab PO SCH (08:10)
[2019-10-02] MEDS: Apixaban 5 MG TABLET PO SCH (08:10)
--- NOTE | 2019-10-02 10:24 | Discharge Summary ---
DATE OF DISCHARGE: 10/02/2019 AGE: 69. SEX: Male. PHYSICIAN: Dr. Nelson. FINAL DIAGNOSIS AND PRIMARY DIAGNOSIS: Unspecified psychosis. History of schizophrenia. SECONDARY DIAGNOSIS: Dementia, moderate to severe, with psychosis and behavioral disturbances. REASON FOR HOSPITALIZATION: The patient was admitted to the hospital from [facility] because of increased agitation and irritability and unable to follow directions. The patient also was in angry and in irritable mood. HOSPITAL COURSE: The patient continued to be anxious and in irritable mood. The patient also was suspicious and paranoid and wants to be left alone. The patient was started on gabapentin and the dose was adjusted to 400 mg 3 times a day and Seroquel was added and the dose adjusted to 50 mg in the morning and 200 mg at bedtime. Gradually, the patient's affect was brighter. He was still confused and also still has unpredictable behavior, but at the same time was calm and easy to follow directions and was compliant with taking his medications. The patient was discharged back to [facility]. Physical exam of the patient and the blood work showed no major medical problems while in the hospital. AFTER DISCHARGE PLANS: The patient discharged from the hospital and went back to [facility] with plans to follow him there. EXPECTED OUTCOME AFTER DISCHARGE: Fair if the patient continues with his treatment and if he continue to comply with taking his medications. [facility]# [id number]
== END 2019-10-02 15:45 | DRG 885 ==
LOC: GERO 17:14
PROVIDERS: ADMIT Psychiatry & Neurology Psychiatry; ATTEND Psychiatry & Neurology Psychiatry
DX: F29 Unspecified psychosis not due to a substance or known physiological condition (principal); F03.91 Unspecified dementia, unspecified severity, with behavioral disturbance; F20.9 Schizophrenia, unspecified; F41.9 Anxiety disorder, unspecified; E78.5 Hyperlipidemia, unspecified; E03.9 Hypothyroidism, unspecified; G62.9 Polyneuropathy, unspecified; I48.91 Unspecified atrial fibrillation; I49.5 Sick sinus syndrome; N40.0 Benign prostatic hyperplasia without lower urinary tract symptoms; Z95.0 Presence of cardiac pacemaker
CPT/HCPCS: 83036-90; G0410; Z7610